=== PATIENT | female | born 1945 | race Caucasian/White ===

== ENCOUNTER 2019-02-12 07:41 | Day surgery (SDC) | payer MEDICARE, OTHER ==
[~2019-02-12] VITALS: Ht 162.6 cm; Wt 82.4 kg
[~2019-02-12 07:41] MED LIST: ALIVE ONCE DAI1 EACH PO; ATEN50 PO; Acetyl L-Carni500 MG PO; CHOL10002 PO; Calcium Carbon500 MG PO; DILT60 PO; Dyazide 37.5-21 EACH PO; FLAX PO; GLIM4 PO; Glucophage1000 MG PO; OMEGA PO; SELENIUM200 MC2 PO; SITA100T2 PO; Simvastatin10 MG PO; VITAMIN C500 M1 PO; ZESTRIL40 MG PO; Zoloft50 MG PO; [UNRECOGNIZED DRUG - OTHER]; [UNRECOGNIZED DRUG - OTHER]; [UNRECOGNIZED DRUG - OTHER] PO; [UNRECOGNIZED DRUG - OTHER] PO
--- NOTE | 2019-02-12 08:54 | NUR ---
02/12/19 0854 LAWRENCE CASTRO 1 IV ATTMEPT BY CML VEIN ROLLED 2 IV ATTEMPT BY CML VEIN BLEW 3 IV ATTEMPT BY CML VEIN ROLLED 4 IV ATTEMPT BY ELS SUCCESS
== END 2019-02-12 09:45 | disposition home or self-care (01) ==
LOC: ORSCSDS 07:41
PROVIDERS: Internal Medicine Gastroenterology
PROC: 0DBN8ZX Excision of Sigmoid Colon, Via Natural or Artificial Opening Endoscopic, Diagnostic (ICD-10-PCS; principal; 2019-02-12 09:00)
DX: Z12.11 Encounter for screening for malignant neoplasm of colon (principal); K63.5 Polyp of colon; K57.30 Diverticulosis of large intestine without perforation or abscess without bleeding; K64.8 Other hemorrhoids; I10 Essential (primary) hypertension; E78.5 Hyperlipidemia, unspecified; F32.9 Major depressive disorder, single episode, unspecified; E11.9 Type 2 diabetes mellitus without complications; E66.9 Obesity, unspecified; Z68.32 Body mass index [BMI] 32.0-32.9, adult; Z79.84 Long term (current) use of oral hypoglycemic drugs; Z79.899 Other long term (current) drug therapy
CPT/HCPCS: 82947; 88305; J0330; J0461; J2405; J2704; J7120

== ENCOUNTER → 2019-06-06 | Outpatient (CLI) | payer MEDICARE, OTHER | END | disposition home or self-care (01) | LOC: LAB 11:56 → LAB SHORT 11:56 | DX: N39.0 Urinary tract infection, site not specified (principal) | CPT/HCPCS: 87077; 87086; 87186 ==

== ENCOUNTER 2020-01-30 19:36 | Emergency (ER) | payer MEDICARE ==
[~2020-01-30] VITALS: Ht 162.6 cm; Wt 81.7 kg
[2020-01-30 20:18] LABS: BASOPHILS ABSOLUTE AUTO 0.04 K/mm3 (0.00-0.23); BASOPHILS PERCENT AUTO 0 % (0-2); EOSINOPHILS ABSOLUTE AUTO 0.02 K/mm3 (0.00-0.68); EOSINOPHILS PERCENT AUTO 0 % (0-6); Hematocrit 38.6 % (33.0-51.0); Hemoglobin 12.9 g/dL (11.5-16.0); IMMATURE GRAN ABSOLUTE AUTO 0.12 K/mm3 (0.00-0.10); IMMATURE GRAN PERCENT AUTO 1 % (0-1); LYMPHOCYTES ABSOLUTE AUTO 1.22 K/mm3 (0.84-5.20); LYMPHOCYTES PERCENT AUTO 6 % (21-46); MONOCYTES ABSOLUTE AUTO 0.99 K/mm3 (0.16-1.47); MONOCYTES PERCENT AUTO 5 % (4-13); Mean Corpuscular HGB 29.5 pg (26.0-34.0); Mean Corpuscular HGB Conc 33.4 g/dL (31.5-36.5); Mean Corpuscular Volume 88 fL (80-100); Mean Platelet Volume 8.5 fL (9.1-12.4); NEUTROPHILS ABSOLUTE AUTO 17.78 K/mm3 (1.96-9.15); NEUTROPHILS PERCENT AUTO 88 % (41-73); Platelet Count 371 K/mm3 (150-400); RDW Coefficient Variation 11.9 % (11.7-14.2); RDW Standard Deviation 38.7 fL (35.1-46.3); Red Blood Cell Count 4.38 M/mm3 (3.80-5.20); White Blood Cell Count 20.17 K/mm3 (4.00-11.30)
[2020-01-30 20:41] LABS: Troponin I <0.015 ng/mL (0.000-0.040)
[2020-01-30 20:42] LABS: Alanine Aminotransfer (ALT/SGP 25 U/L (12-78); Albumin, Blood 3.6 g/dL (3.4-5.0); Albumin/Globulin Ratio 0.8 (0.8-1.8); Alk Phos 44 U/L (50-136); Anion Gap 8 mmol/L (6-16); Aspartate Aminotrans (AST/SGOT 15 U/L (12-37); Bilirubin, Total 0.8 mg/dL (0.1-1.0); Blood Urea Nitrogen 20 mg/dL (8-24); Bun/Creatinine Ratio 25.8 (12.0-20.0); CO2, Blood 26 mmol/L (21-32); Calcium, Blood 8.8 mg/dL (8.5-10.1); Chloride, Blood 95 mmol/L (98-108); Creatinine, Blood 0.77 mg/dL (0.40-1.00); Globulin, Blood 4.4 g/dL (2.2-4.0); Glomerular Filtration Rate >60 (60-); Glucose, Blood 354 mg/dL (70-99); Sodium, Blood 129 mmol/L (136-145)
[2020-01-30] MEDS ORDERED: MULVITB (21:30)
[2020-01-30] MEDS ORDERED: LISINOPRIL 40 MG (21:30)
[2020-01-30] MEDS ORDERED: FURO20 (21:31)
[2020-01-30] MEDS ORDERED: LISI20 PO (21:32)
[2020-01-30 22:27] LABS: Source, Urine Clean Catch
[2020-01-30 22:29] LABS: Bilirubin, Urine Neg (Neg); Blood, Urine 2+ (Neg); Glucose Qualitative, Urine 4+ (Neg); Ketones, Urine 2+ (Neg); Leukocyte Esterase, Urine 3+ (Neg); Nitrite, Urine Neg (Neg); Protein, Urine 2+ (Neg); Specific Gravity, Urine 1.015 (1.003-1.022); Urobilinogen, Urine NORM (Normal)
[2020-01-30 22:30] LABS: Appearance, Urine Hazy (Clear); Color, Urine Yellow (P-Yellow)
[2020-01-30 22:47] LABS: Bacteria Many /hpf; Squamous Epithelial Cells Few /hpf (Few)
[2020-01-30] MEDS ORDERED: CEPH500 PO (22:55)
[2020-02-02] MEDS ORDERED: ATEN50 PO (08:50)
[2020-02-02] MEDS ORDERED: SITA100T2 PO (08:50)
[2020-02-02] MEDS ORDERED: DILT60 PO (08:51)
[2020-02-02] MEDS ORDERED: ZESTRIL40 M1 PO (08:51)
[2020-02-02] MEDS ORDERED: SIMV10 PO (08:51)
[2020-02-02] MEDS ORDERED: SERT50 PO (08:51)
[2020-02-02] MEDS ORDERED: METFORMIN HCL1000 MG PO (08:52)
[2020-02-02] MEDS ORDERED: GLIM4 PO (08:52)
[2020-02-02] MEDS ORDERED: SELENIUM200 MC2 PO (08:53)
[2020-02-02] MEDS ORDERED: VITAMIN D325 MC3 PO (08:53)
[2020-02-02] MEDS ORDERED: CALCIUM CARBON500 M4 PO (08:53)
[2020-02-02] MEDS ORDERED: ASCO500 PO (08:54)
[2020-02-02] MEDS ORDERED: FLAX OIL1000 M1 PO (08:54)
[2020-02-02] MEDS ORDERED: MULTIPLE VITAM1 EACH PO (08:54)
[2020-02-02] MEDS ORDERED: ROPINIROLE HCL0.5 MG PO (08:55)
[2020-02-02] MEDS ORDERED: DYAZIDE 37.5-21 EACH PO (08:55)
== END 2020-01-30 23:25 | disposition home or self-care (01) ==
LOC: ER 19:36
PROVIDERS: Emergency Medicine
DX: R42 Dizziness and giddiness (principal); N39.0 Urinary tract infection, site not specified; D72.829 Elevated white blood cell count, unspecified; Z79.899 Other long term (current) drug therapy; Z79.84 Long term (current) use of oral hypoglycemic drugs; W19.XXXA Unspecified fall, initial encounter
CPT/HCPCS: 36415; 80053; 81001; 84484; 85025; 87086; 93005; 93010; 99284-25; A9270-GY

== ENCOUNTER → 2020-02-06 | Outpatient (CLI) | payer MEDICARE, OTHER ==
[~2020-02-06] MED LIST changes: +ASCO500 PO; +CALCIUM CARBON500 M4 PO; +CEPH500 PO; +DYAZIDE 37.5-21 EACH PO; +FLAX OIL1000 M1 PO; +FURO20; +LISI20 PO; +LISINOPRIL 40 MG; +METFORMIN HCL1000 MG PO; +MULTIPLE VITAM1 EACH PO; +MULVITB; +ROPINIROLE HCL0.5 MG PO; +SERT50 PO; +SIMV10 PO; +VITAMIN D325 MC3 PO; +ZESTRIL40 M1 PO
[2020-02-06 10:48] LABS: Source, Urine Clean Catch
[2020-02-06 11:47] LABS: Appearance, Urine Clear (Clear); Bilirubin, Urine Neg (Neg); Blood, Urine Neg (Neg); Color, Urine Yellow (P-Yellow); Glucose Qualitative, Urine 4+ (Neg); Ketones, Urine Neg (Neg); Leukocyte Esterase, Urine Neg (Neg); Nitrite, Urine Neg (Neg); Protein, Urine Neg (Neg); Urobilinogen, Urine NORM (Normal)
== END | disposition home or self-care (01) ==
LOC: OLS 10:47 → LAB SHORT 10:47
PROVIDERS: Podiatrist Foot & Ankle Surgery
DX: Z01.818 Encounter for other preprocedural examination (principal); N39.0 Urinary tract infection, site not specified
CPT/HCPCS: 81003

== ENCOUNTER 2023-06-20 08:23 | Day surgery (SDC) | payer MEDICARE ==
[2023-06-25] MEDS ORDERED: JANUMET 50-1,01 EACH PO (10:55)
== END 2023-06-20 23:11 | disposition home or self-care (01) ==
LOC: MOI MAM 08:23 → MOI US 06-22 08:45
DX: R92.1 Mammographic calcification found on diagnostic imaging of breast (principal)
CPT/HCPCS: 19281; A4648

== ENCOUNTER 2023-06-27 07:01 | Day surgery (SDC) | payer MEDICARE ==
[2023-06-27] VITALS (9 sets, daily range): BP systolic 167–190; BP diastolic 76–100
[~2023-06-27] VITALS: Ht 162.6 cm; Wt 70.2 kg
[~2023-06-27 07:01] MED LIST changes: +JANUMET 50-1,01 EACH PO
[2023-06-27] MEDS ORDERED: TRULICITY0.75 MG/01 SC (07:50)
--- NOTE | 2023-06-27 11:01 | NUR ---
PT STATES SHE DID NOT TAKE HER BP MEDICATIONS THIS AM. DR SOARES AWARE OF HIGH BP. PT INSTRUCTED TO TAKE BP MEDICATIONS ONCE HOME. PT VERBALIZES UNDERSTANDING.
--- NOTE | 2023-06-27 11:43 | NUR ---
Discharge instructions reviewed with patient. Patient verbalizes understanding. Copy given to patient to take home. Patient States Post-Procedure ride home has been arranged. Discharged via wheelchair to private car for ride home. Copy of physical prescription placed in pt's discharge folder.
== END 2023-06-27 11:50 | disposition home or self-care (01) ==
LOC: ORSCMMR 07:01 → ORD 08:30 → ORSCMMR 08:30
PROVIDERS: Surgery
PROC: 0HBT0ZX Excision of Right Breast, Open Approach, Diagnostic (ICD-10-PCS; principal; 2023-06-27 08:30)
DX: R92.1 Mammographic calcification found on diagnostic imaging of breast (principal); I10 Essential (primary) hypertension; G47.33 Obstructive sleep apnea (adult) (pediatric); E11.9 Type 2 diabetes mellitus without complications; Z79.84 Long term (current) use of oral hypoglycemic drugs; Z79.899 Other long term (current) drug therapy
CPT/HCPCS: 82947; 88307; A9270; J0690; J1100; J2250; J2371; J2405; J2704; J3010; J7120

== ENCOUNTER 2024-10-09 02:32 | Day surgery (SDC) | payer OTHER ==
[~2024-10-09 02:32] MED LIST changes: +TRULICITY0.75 MG/01 SC
[2024-10-09] MEDS ORDERED: Lidocaine HCl 4% Cream 5 GM ONE (08:06)
== END 2024-10-09 23:00 | disposition home or self-care (01) ==
LOC: WOUND 02:32
DX: E11.622 Type 2 diabetes mellitus with other skin ulcer (principal); L97.812 Non-pressure chronic ulcer of other part of right lower leg with fat layer exposed; E11.51 Type 2 diabetes mellitus with diabetic peripheral angiopathy without gangrene; I87.2 Venous insufficiency (chronic) (peripheral); Z90.710 Acquired absence of both cervix and uterus
CPT/HCPCS: A9270

== ENCOUNTER 2024-10-16 00:58 | Day surgery (SDC) | payer OTHER ==
[2024-10-16] MEDS ORDERED: Lidocaine HCl 4% Cream 5 GM ONE (13:18)
== END 2024-10-16 23:00 | disposition home or self-care (01) ==
LOC: WOUND 00:58
DX: E11.622 Type 2 diabetes mellitus with other skin ulcer (principal); L97.812 Non-pressure chronic ulcer of other part of right lower leg with fat layer exposed; I87.2 Venous insufficiency (chronic) (peripheral); E11.51 Type 2 diabetes mellitus with diabetic peripheral angiopathy without gangrene
CPT/HCPCS: A9270

== ENCOUNTER 2024-10-23 02:21 | Day surgery (SDC) | payer OTHER ==
[2024-10-23] MEDS ORDERED: Lidocaine HCl 4% Cream 5 GM ONE ×2 (13:04→13:20)
== END 2024-10-23 23:00 | disposition home or self-care (01) ==
LOC: WOUND 02:21
DX: E11.622 Type 2 diabetes mellitus with other skin ulcer (principal); L97.812 Non-pressure chronic ulcer of other part of right lower leg with fat layer exposed; I87.2 Venous insufficiency (chronic) (peripheral); E11.51 Type 2 diabetes mellitus with diabetic peripheral angiopathy without gangrene
CPT/HCPCS: A9270

== ENCOUNTER 2024-10-30 04:17 | Day surgery (SDC) | payer OTHER ==
[2024-10-30] MEDS ORDERED: ASPI81CH PO (11:12)
[2024-10-30] MEDS ORDERED: FURO20 PO (11:13)
[2024-10-30] MEDS ORDERED: POTA10T PO (11:14)
[2024-10-30] MEDS ORDERED: MOUNJARO7.5 MG/0.5 SQ (11:15)
[2024-10-30] MEDS ORDERED: METF500 PO (11:15)
[2024-10-30] MEDS ORDERED: Percocet 5-3251 EACH PO (11:16)
[2024-10-30] MEDS ORDERED: Pentoxifylline400 MG PO (11:17)
[2024-10-30] MEDS ORDERED: Lidocaine HCl 4% Cream 5 GM ONE (14:01)
== END 2024-10-30 23:00 | disposition home or self-care (01) ==
LOC: WOUND 04:17
DX: E11.622 Type 2 diabetes mellitus with other skin ulcer (principal); L97.812 Non-pressure chronic ulcer of other part of right lower leg with fat layer exposed; I87.2 Venous insufficiency (chronic) (peripheral); E11.51 Type 2 diabetes mellitus with diabetic peripheral angiopathy without gangrene; I70.221 Atherosclerosis of native arteries of extremities with rest pain, right leg
CPT/HCPCS: A9270

== ENCOUNTER 2024-10-31 10:00 | Day surgery (SDC) | payer OTHER ==
[~2024-10-31] VITALS: Ht 162.6 cm; Wt 60.8 kg
[2024-10-31] VITALS (11 sets, daily range): BP systolic 121–187; BP diastolic 72–99
[~2024-10-31 10:00] MED LIST changes: +ASPI81CH PO; +FURO20 PO; +METF500 PO; +MOUNJARO7.5 MG/0.5 SQ; +POTA10T PO; +Pentoxifylline400 MG PO; +Percocet 5-3251 EACH PO
[2024-10-31] MEDS ORDERED: NS 250 ML IV ONE (10:41)
[2024-10-31] MEDS ORDERED: Heparin Sodium 1000 Units/ML 10ML MDV ONE ×3 (10:41→10:59)
[2024-10-31] MEDS ORDERED: FentaNYL Citrate 50 MCG/ML 2 ML Injection ONE ×2 (10:41→10:59)
[2024-10-31] MEDS ORDERED: NS 1,000 ML IV ONE ×3 (10:41→11:00)
[2024-10-31] MEDS ORDERED: Midazolam HCl 1MG / ML 2ML Vial ONE ×2 (10:41→10:58)
[2024-10-31] MEDS ORDERED: NS 500 ML IV ONE (10:45)
[2024-10-31] MEDS ORDERED: Nitroglycerin 2 MG/20 ML BTL ONE ×2 (10:45→10:55)
--- NOTE | 2024-10-31 10:45 | NUR ---
WHEN ADINA FIRST ARRIVED TO RECOVERY ROOM NEAR HER BED SHE FELL TO THE FLOOR. THIS WAS WITNESSED BY ANGELA OLSEN AND HEARD BY ANGELA WHITEHEAD. ADINA WAS ASSISTED TO THE BED AND STATED SHE "FELT FINE" AND LATER STATED SHE IS "FEELING FINE." WILL CONTINUE TO MONITOR. SEE VITAL SIGNS. ANGELA CARBAJAL NOTIFIED.
--- NOTE | 2024-10-31 11:06 | NUR ---
PT STATED TO ANGELA SULTANA THAT " I DIDN'T HURT MYSELF" WHEN SHE FELL UPON ARRIVAL TO RECOVERY ROOM FOR HER PROCEDURE.
[2024-10-31] MEDS ORDERED: HydrALAZINE HCl 20 MG / ML 1ML Vial ONE ×2 (11:26→13:51)
[2024-10-31] MEDS ORDERED: Labetalol HCL 5 MG/ML 4ML Injection (Single Dose) ONE (11:26)
--- NOTE | 2024-10-31 12:35 | NUR ---
PT RETURNED TO RECOVERY ROOM IN BED. LEFT FEMORAL GROIN SITE SOFT NON-TENDER WITH NO HEMATOMA, NO PULSATILE BLEEDING AND INTACT DRESSING. LEFT FOOT PULSES ABSENT THEY WERE UPON ARRIVAL TODAY. R DP DOPPLER. CALL LIGHT IN REACH.
--- NOTE | 2024-10-31 12:58 | NUR ---
NO CHANGES TO LEFT FEM GROIN SITE; R DP STILL DOPPLER.
--- NOTE | 2024-10-31 13:38 | NUR ---
NO CHANGES TO LEFT FEMORAL GROIN SITE. R DP SITLL DOPPLER PULSE. PT ON BEDPAN. HOB UP TO 45 DEGREES.
--- NOTE | 2024-10-31 14:15 | NUR ---
NO CHANGES TO L FEM GROIN SITE; R DP PULSE STILL DOPPLER. DISCHARGE INSTRUCTIONS REVIEWED ALL QUESTIONS ANSWERED.
--- NOTE | 2024-10-31 14:27 | NUR ---
22 G IV DISCONTINED FROM LEFT HAND WITH INTACT CANNULA. PT ESCORTED OUT VIA WHEELCHAIR ESCORT.
== END 2024-10-31 14:30 | disposition home or self-care (01) ==
LOC: MHTC 10:00
DX: E11.51 Type 2 diabetes mellitus with diabetic peripheral angiopathy without gangrene (principal); I70.221 Atherosclerosis of native arteries of extremities with rest pain, right leg; L97.919 Non-pressure chronic ulcer of unspecified part of right lower leg with unspecified severity; I10 Essential (primary) hypertension; Z79.82 Long term (current) use of aspirin; Z79.899 Other long term (current) drug therapy; Z88.8 Allergy status to other drugs, medicaments and biological substances
CPT/HCPCS: 36247; 36415; 37228; 37232; 75625; 75716; 75774; 76937; 80048; 85007; 85027; 85610; 99152; 99153; C1725; C1760; C1769; C1887; C1894; J0360; J1644; J2250; J3010; J7030; J7050; Q9967

== ENCOUNTER 2024-11-07 03:29 | Day surgery (SDC) | payer OTHER ==
[2024-11-07] MEDS ORDERED: Lidocaine HCl 4% Cream 5 GM ONE ×2 (12:58→13:15)
== END 2024-11-07 23:00 | disposition home or self-care (01) ==
LOC: WOUND 03:29
DX: E11.622 Type 2 diabetes mellitus with other skin ulcer (principal); L97.812 Non-pressure chronic ulcer of other part of right lower leg with fat layer exposed; I87.2 Venous insufficiency (chronic) (peripheral); E11.51 Type 2 diabetes mellitus with diabetic peripheral angiopathy without gangrene
CPT/HCPCS: A9270

== ENCOUNTER 2024-11-14 04:15 | Day surgery (SDC) | payer OTHER ==
[2024-11-14] MEDS ORDERED: Lidocaine HCl 4% Cream 5 GM ONE ×2 (15:04→15:18)
== END 2024-11-14 23:00 | disposition home or self-care (01) ==
LOC: WOUND 04:15
DX: E11.622 Type 2 diabetes mellitus with other skin ulcer (principal); L97.813 Non-pressure chronic ulcer of other part of right lower leg with necrosis of muscle; L97.812 Non-pressure chronic ulcer of other part of right lower leg with fat layer exposed; I87.2 Venous insufficiency (chronic) (peripheral); E11.51 Type 2 diabetes mellitus with diabetic peripheral angiopathy without gangrene
CPT/HCPCS: A9270

== ENCOUNTER 2024-11-21 00:35 | Day surgery (SDC) | payer OTHER ==
[2024-11-21] MEDS ORDERED: Lidocaine HCl 4% Cream 5 GM ONE (12:54)
== END 2024-11-21 23:00 | disposition home or self-care (01) ==
LOC: WOUND 00:35
DX: E11.622 Type 2 diabetes mellitus with other skin ulcer (principal); L97.813 Non-pressure chronic ulcer of other part of right lower leg with necrosis of muscle; E11.51 Type 2 diabetes mellitus with diabetic peripheral angiopathy without gangrene; I87.2 Venous insufficiency (chronic) (peripheral)
CPT/HCPCS: A9270

== ENCOUNTER 2024-11-28 03:43 | Day surgery (SDC) | payer OTHER ==
[2024-11-28] MEDS ORDERED: Lidocaine HCl 4% Cream 5 GM ONE (13:04)
== END 2024-11-28 23:00 | disposition home or self-care (01) ==
LOC: WOUND 03:43
DX: E11.622 Type 2 diabetes mellitus with other skin ulcer (principal); L97.815 Non-pressure chronic ulcer of other part of right lower leg with muscle involvement without evidence of necrosis; L97.812 Non-pressure chronic ulcer of other part of right lower leg with fat layer exposed; I87.2 Venous insufficiency (chronic) (peripheral); E11.51 Type 2 diabetes mellitus with diabetic peripheral angiopathy without gangrene
CPT/HCPCS: A9270

== ENCOUNTER 2024-12-12 02:59 | Day surgery (SDC) | payer OTHER ==
[2024-12-12] MEDS ORDERED: Lidocaine HCl 4% Cream 5 GM ONE (12:39)
== END 2024-12-12 23:00 | disposition home or self-care (01) ==
LOC: WOUND 02:59
DX: E11.622 Type 2 diabetes mellitus with other skin ulcer (principal); L97.813 Non-pressure chronic ulcer of other part of right lower leg with necrosis of muscle; E11.51 Type 2 diabetes mellitus with diabetic peripheral angiopathy without gangrene; I87.2 Venous insufficiency (chronic) (peripheral)
CPT/HCPCS: A9270

== ENCOUNTER 2024-12-26 05:08 | Day surgery (SDC) | payer OTHER ==
[2024-12-26] MEDS ORDERED: Lidocaine HCl 4% Cream 5 GM ONE (13:08)
== END 2024-12-26 23:00 | disposition home or self-care (01) ==
LOC: WOUND 05:08
DX: E11.622 Type 2 diabetes mellitus with other skin ulcer (principal); L97.813 Non-pressure chronic ulcer of other part of right lower leg with necrosis of muscle; E11.51 Type 2 diabetes mellitus with diabetic peripheral angiopathy without gangrene
CPT/HCPCS: A6196; A9270

== ENCOUNTER 2024-12-31 03:23 | Day surgery (SDC) | payer OTHER ==
[2024-12-31] MEDS ORDERED: Lidocaine HCl 4% Cream 5 GM ONE (15:17)
== END 2024-12-31 23:00 | disposition home or self-care (01) ==
LOC: WOUND 03:23
DX: E11.622 Type 2 diabetes mellitus with other skin ulcer (principal); L97.812 Non-pressure chronic ulcer of other part of right lower leg with fat layer exposed; L97.822 Non-pressure chronic ulcer of other part of left lower leg with fat layer exposed; E11.621 Type 2 diabetes mellitus with foot ulcer; L97.522 Non-pressure chronic ulcer of other part of left foot with fat layer exposed; I87.2 Venous insufficiency (chronic) (peripheral); E11.51 Type 2 diabetes mellitus with diabetic peripheral angiopathy without gangrene
CPT/HCPCS: A6196; A9270

== ENCOUNTER 2025-01-16 08:00 | Day surgery (SDC) | payer OTHER ==
[2025-01-16] MEDS ORDERED: Lidocaine HCl 4% Cream 5 GM ONE (13:22)
== END 2025-01-16 23:24 | disposition home or self-care (01) ==
LOC: WOUND 08:00
DX: E11.622 Type 2 diabetes mellitus with other skin ulcer (principal); L97.213 Non-pressure chronic ulcer of right calf with necrosis of muscle; E11.621 Type 2 diabetes mellitus with foot ulcer; L97.522 Non-pressure chronic ulcer of other part of left foot with fat layer exposed; I87.2 Venous insufficiency (chronic) (peripheral); I73.9 Peripheral vascular disease, unspecified
CPT/HCPCS: A9270

== ENCOUNTER 2025-01-23 02:44 | Day surgery (SDC) | payer OTHER ==
[2025-01-23] MEDS ORDERED: Lidocaine HCl 4% Cream 5 GM ONE (13:29)
== END 2025-01-23 23:00 | disposition home or self-care (01) ==
LOC: WOUND 02:44
DX: E11.622 Type 2 diabetes mellitus with other skin ulcer (principal); L97.813 Non-pressure chronic ulcer of other part of right lower leg with necrosis of muscle; I87.2 Venous insufficiency (chronic) (peripheral); E11.51 Type 2 diabetes mellitus with diabetic peripheral angiopathy without gangrene
CPT/HCPCS: A9270

== ENCOUNTER 2025-02-27 01:44 | Day surgery (SDC) | payer OTHER ==
[2025-02-27] MEDS ORDERED: Sodium Hypochlorite 0.125% 20ML BTL ONE (13:02)
[2025-02-27] MEDS ORDERED: Lidocaine HCl 4% Cream 5 GM ONE (13:02)
== END 2025-02-27 23:00 | disposition home or self-care (01) ==
LOC: WOUND 01:44
DX: E11.622 Type 2 diabetes mellitus with other skin ulcer (principal); L97.213 Non-pressure chronic ulcer of right calf with necrosis of muscle; L97.313 Non-pressure chronic ulcer of right ankle with necrosis of muscle; I87.2 Venous insufficiency (chronic) (peripheral); E11.51 Type 2 diabetes mellitus with diabetic peripheral angiopathy without gangrene
CPT/HCPCS: A9270

== ENCOUNTER 2025-03-06 06:00 | Day surgery (SDC) | payer OTHER ==
[2025-03-06] MEDS ORDERED: Lidocaine HCl 4% Cream 5 GM ONE (12:59)
== END 2025-03-06 23:00 | disposition home or self-care (01) ==
LOC: WOUND 06:00
DX: E11.622 Type 2 diabetes mellitus with other skin ulcer (principal); L97.812 Non-pressure chronic ulcer of other part of right lower leg with fat layer exposed; L97.312 Non-pressure chronic ulcer of right ankle with fat layer exposed; I87.2 Venous insufficiency (chronic) (peripheral); E11.51 Type 2 diabetes mellitus with diabetic peripheral angiopathy without gangrene
CPT/HCPCS: A9270

== ENCOUNTER 2025-03-20 04:19 | Day surgery (SDC) | payer OTHER ==
[2025-03-20] MEDS ORDERED: Lidocaine HCl 4% Cream 5 GM ONE (12:59)
== END 2025-03-20 23:00 | disposition home or self-care (01) ==
LOC: WOUND 04:19
DX: E11.622 Type 2 diabetes mellitus with other skin ulcer (principal); L97.213 Non-pressure chronic ulcer of right calf with necrosis of muscle; L97.315 Non-pressure chronic ulcer of right ankle with muscle involvement without evidence of necrosis; I87.2 Venous insufficiency (chronic) (peripheral); E11.51 Type 2 diabetes mellitus with diabetic peripheral angiopathy without gangrene
CPT/HCPCS: A9270

== ENCOUNTER → 2025-03-25 | Day surgery (SDC) | payer OTHER ==
[~2025-03-25] MED LIST changes: +Lidocaine HCl 4% Cream 5 GM ONE
== END | disposition home or self-care (01) ==
LOC: WOUND
DX: E11.622 Type 2 diabetes mellitus with other skin ulcer (principal); L97.815 Non-pressure chronic ulcer of other part of right lower leg with muscle involvement without evidence of necrosis; L97.822 Non-pressure chronic ulcer of other part of left lower leg with fat layer exposed; L97.312 Non-pressure chronic ulcer of right ankle with fat layer exposed; I87.2 Venous insufficiency (chronic) (peripheral); E11.51 Type 2 diabetes mellitus with diabetic peripheral angiopathy without gangrene
CPT/HCPCS: A9270

== ENCOUNTER 2025-04-10 00:55 | Day surgery (SDC) | payer OTHER ==
[~2025-04-10 00:55] MED LIST changes: -Lidocaine HCl 4% Cream 5 GM ONE
[2025-04-10] MEDS ORDERED: Lidocaine HCl 4% Cream 5 GM ONE (13:54)
== END 2025-04-10 23:00 | disposition home or self-care (01) ==
LOC: WOUND 00:55
DX: E11.622 Type 2 diabetes mellitus with other skin ulcer (principal); L97.213 Non-pressure chronic ulcer of right calf with necrosis of muscle; L97.813 Non-pressure chronic ulcer of other part of right lower leg with necrosis of muscle; L97.312 Non-pressure chronic ulcer of right ankle with fat layer exposed; E11.51 Type 2 diabetes mellitus with diabetic peripheral angiopathy without gangrene; I87.2 Venous insufficiency (chronic) (peripheral)
CPT/HCPCS: A9270

== ENCOUNTER 2025-04-17 03:24 | Day surgery (SDC) | payer OTHER ==
[2025-04-17] MEDS ORDERED: Lidocaine HCl 4% Cream 5 GM ONE (13:08)
== END 2025-04-17 23:20 | disposition home or self-care (01) ==
LOC: WOUND 03:24
DX: E11.622 Type 2 diabetes mellitus with other skin ulcer (principal); L97.213 Non-pressure chronic ulcer of right calf with necrosis of muscle; L97.312 Non-pressure chronic ulcer of right ankle with fat layer exposed; I87.2 Venous insufficiency (chronic) (peripheral); E11.51 Type 2 diabetes mellitus with diabetic peripheral angiopathy without gangrene
CPT/HCPCS: A9270

== ENCOUNTER 2025-04-24 03:30 | Day surgery (SDC) | payer OTHER ==
[2025-04-24] MEDS ORDERED: Lidocaine HCl 4% Cream 5 GM ONE (13:04)
== END 2025-04-24 23:00 | disposition home or self-care (01) ==
LOC: WOUND 03:30
DX: E11.622 Type 2 diabetes mellitus with other skin ulcer (principal); L97.215 Non-pressure chronic ulcer of right calf with muscle involvement without evidence of necrosis; L97.812 Non-pressure chronic ulcer of other part of right lower leg with fat layer exposed; L97.312 Non-pressure chronic ulcer of right ankle with fat layer exposed; I87.2 Venous insufficiency (chronic) (peripheral); E11.51 Type 2 diabetes mellitus with diabetic peripheral angiopathy without gangrene
CPT/HCPCS: A9270

== ENCOUNTER 2025-04-30 00:28 | Day surgery (SDC) | payer OTHER | END 2025-04-30 23:00 | disposition home or self-care (01) | LOC: WOUND 00:28 | DX: E11.622 Type 2 diabetes mellitus with other skin ulcer (principal); L97.815 Non-pressure chronic ulcer of other part of right lower leg with muscle involvement without evidence of necrosis; L97.812 Non-pressure chronic ulcer of other part of right lower leg with fat layer exposed; L97.312 Non-pressure chronic ulcer of right ankle with fat layer exposed; I87.2 Venous insufficiency (chronic) (peripheral); E11.51 Type 2 diabetes mellitus with diabetic peripheral angiopathy without gangrene | CPT/HCPCS: G0463 ==

== ENCOUNTER 2025-05-15 00:11 | Day surgery (SDC) | payer OTHER ==
[2025-05-15] MEDS ORDERED: Lidocaine HCl 4% Cream 5 GM ONE (13:13)
== END 2025-05-15 23:00 | disposition home or self-care (01) ==
LOC: WOUND 00:11
DX: E11.622 Type 2 diabetes mellitus with other skin ulcer (principal); L97.212 Non-pressure chronic ulcer of right calf with fat layer exposed; L97.312 Non-pressure chronic ulcer of right ankle with fat layer exposed; E11.51 Type 2 diabetes mellitus with diabetic peripheral angiopathy without gangrene; I87.2 Venous insufficiency (chronic) (peripheral)
CPT/HCPCS: A9270

== ENCOUNTER 2025-05-22 10:40 | Day surgery (SDC) | payer OTHER ==
[2025-05-22] MEDS ORDERED: Lidocaine HCl 4% Cream 5 GM ONE (12:59)
== END 2025-05-22 23:00 | disposition home or self-care (01) ==
LOC: WOUND 10:40
DX: E11.622 Type 2 diabetes mellitus with other skin ulcer (principal); L97.812 Non-pressure chronic ulcer of other part of right lower leg with fat layer exposed; L97.312 Non-pressure chronic ulcer of right ankle with fat layer exposed; I87.2 Venous insufficiency (chronic) (peripheral); E11.51 Type 2 diabetes mellitus with diabetic peripheral angiopathy without gangrene
CPT/HCPCS: A9270; G0463

== ENCOUNTER 2025-06-12 00:16 | Day surgery (SDC) | payer OTHER ==
[2025-06-12] MEDS ORDERED: Lidocaine HCl 4% Cream 5 GM ONE (10:10)
== END 2025-06-12 23:00 | disposition home or self-care (01) ==
LOC: WOUND 00:16
DX: E11.622 Type 2 diabetes mellitus with other skin ulcer (principal); L97.213 Non-pressure chronic ulcer of right calf with necrosis of muscle; L97.312 Non-pressure chronic ulcer of right ankle with fat layer exposed; L97.812 Non-pressure chronic ulcer of other part of right lower leg with fat layer exposed; I87.2 Venous insufficiency (chronic) (peripheral); E11.51 Type 2 diabetes mellitus with diabetic peripheral angiopathy without gangrene
CPT/HCPCS: A9270; G0463

== ENCOUNTER 2025-06-19 01:04 | Day surgery (SDC) | payer OTHER ==
[2025-06-19] MEDS ORDERED: Lidocaine HCl 4% Cream 5 GM ONE (13:04)
== END 2025-06-19 23:00 | disposition home or self-care (01) ==
LOC: WOUND 01:04
DX: E11.622 Type 2 diabetes mellitus with other skin ulcer (principal); L97.212 Non-pressure chronic ulcer of right calf with fat layer exposed; L97.812 Non-pressure chronic ulcer of other part of right lower leg with fat layer exposed; L97.311 Non-pressure chronic ulcer of right ankle limited to breakdown of skin; I87.2 Venous insufficiency (chronic) (peripheral); E11.51 Type 2 diabetes mellitus with diabetic peripheral angiopathy without gangrene
CPT/HCPCS: A9270; G0463

== ENCOUNTER 2025-06-26 00:27 | Day surgery (SDC) | payer OTHER ==
[2025-06-26] MEDS ORDERED: Lidocaine HCl 4% Cream 5 GM ONE (12:54)
== END 2025-06-26 23:00 | disposition home or self-care (01) ==
LOC: WOUND 00:27
DX: E11.622 Type 2 diabetes mellitus with other skin ulcer (principal); L97.212 Non-pressure chronic ulcer of right calf with fat layer exposed; E11.51 Type 2 diabetes mellitus with diabetic peripheral angiopathy without gangrene; I87.2 Venous insufficiency (chronic) (peripheral)
CPT/HCPCS: A9270; G0463

== ENCOUNTER 2025-07-03 02:25 | Day surgery (SDC) | payer OTHER | END 2025-07-03 23:00 | disposition home or self-care (01) | LOC: WOUND 02:25 | DX: L97.811 Non-pressure chronic ulcer of other part of right lower leg limited to breakdown of skin (principal); I87.2 Venous insufficiency (chronic) (peripheral); I73.9 Peripheral vascular disease, unspecified; Z87.828 Personal history of other (healed) physical injury and trauma | CPT/HCPCS: G0463 ==